=== PATIENT | female | born 1975 | race Caucasian/White ===

== ENCOUNTER 2019-03-15 00:51 | Day surgery (SDC) | payer OTHER, SELFPAY ==
[2019-03-07 13:12] VITALS: BMI 76.5
--- NOTE | 2019-03-13 14:47 | PM.IMHP ---
H&P: HPI History of Present Illness Chief complaint: Ovarian cyst, pelvic pain Narrative: Kenna Felix is a 43 year old female who is admitted for laparoscopy and left ovarian cystectomy. She may have both tubes removed at the same time. She is status post hysterectomy and has had pain and discomfort. She had an ultrasound which showed what appears to be left ovarian cyst. This will be removed with the possibility of removing the entire ovary. Risks and benefits were reviewed including but not exclusive of , aspiration pneumonia, bleeding, transfusion, perforation to bowel bladder, bladder, ureters, or other internal organs with need for laparotomy. She voiced understanding. She had all questions answered. She received the [employer] handout entitled laparoscopy. She asked to proceed Review of Systems Review of Systems: All systems reviewed & are unremarkable except as noted in HPI and below PMFSH Social History Social History Gender identity (if verbalized by the patient): Female Meds Home Medications and Allergies Home Medications Medication Instructions Recorded Confirmed Type L.acid-L.casei-B.bif-B.nickolas-FOS 1 cap PO DAILY 03/07/19 03/07/19 History [Probiotic Blend] cholecalciferol (vitamin D3) 2,000 unit PO DAILY 03/07/19 03/07/19 History [Vitamin D3] cyanocobalamin (vitamin B-12) 1,000 mcg PO DAILY 03/07/19 03/07/19 History [Vitamin B-12] lisinopril 5 mg PO DAILY 03/07/19 03/07/19 History omeprazole 20 mg PO DAILY 03/07/19 03/07/19 History Allergies Allergy/AdvReac Type Severity Reaction Status Date / Time codeine Allergy Unknown HIVES Verified 03/07/19 13:38 Exam Const: General: no acute distress Eyes: General: appearance normal, both eyes and all related structures Neck: Neck: supple and no JVD Thyroid: thyroid normal Resp: Effort & Inspection: normal respiratory effort Auscultation: clear to auscultation bilaterally Cardio: Rate: regular rate Rhythm: regular rhythm GI: Inspection: non-distended GI Palp: Yes Soft to palpation, No Tenderness to palpation present (GI) and No Guarding due to palpation present (GI) Auscultation: normal bowel sounds : Bimanual exam- vagina & uterus: enlarged (absent) Bimanual Exam- Adnexa, other: tender (bilaterally) Skin: General skin exam: no rashes or lesions noted Extrem: General: normal to inspection and no edema Psych: Mental Status: mental status grossly normal Affect: normal affect Assessment and Plan Additional Plan impression: Complex left ovarian cyst Plan: Laparoscopy, left cystectomy, possible bilateral salpingectomy, possible left salpingo-oophorectomy
[2019-03-15] VITALS (10 sets, daily range): BP systolic 124–151; BP diastolic 71–89; PULSE 46–94; RESP 14–18; TEMP 36.2–36.3; O2SAT 97–100
[2019-03-15] MEDS: LACTATED RINGERS 1,000 ML 30 ML IV CONT (06:30)
--- NOTE | 2019-03-15 06:48 | WPDHPUPDATE1 ---
History and Physical Update Update Date/Time: 03/15/19 06:48 History and Physical has been reviewed, including an updated exam of the patient. There are NO changes in the patient's condition. Risks, benefits, and alternatives have been discussed and questions answered. Patient agrees to proceed with procedure.
--- NOTE | 2019-03-15 07:20 | WPDANESEPPF ---
Anes - Initial Pre Proc Eval Procedure: Operation Date: 03/15/19 07:30 Proposed Procedures p Laparoscopy with Unilateral Ovarian Cystectomy, Possible Bilateral Salpingectomy - Alejandro Estrada MD Date/Time: 03/15/19 07:20 Surgeon: Alejandro Estrada MD Pre Op Diagnosis: Ovarian cyst, pelvic pain Patient Data Age: 43 Gender: F Height: 5 ft 9 in Weight: 235 kg Allergies Allergy/AdvReac Type Severity Reaction Status Date / Time codeine Allergy Unknown HIVES Verified 03/07/19 13:38 Home Medications Medication Instructions Recorded Confirmed Type L.acid-L.casei-B.bif-B.nickolas-FOS 1 cap PO DAILY 03/07/19 03/07/19 History [Probiotic Blend] cholecalciferol (vitamin D3) 2,000 unit PO DAILY 03/07/19 03/07/19 History [Vitamin D3] cyanocobalamin (vitamin B-12) 1,000 mcg PO DAILY 03/07/19 03/07/19 History [Vitamin B-12] lisinopril 5 mg PO DAILY 03/07/19 03/07/19 History omeprazole 20 mg PO DAILY 03/07/19 03/07/19 History tramadol 50 mg PO Q4H PRN #20 tablet 03/15/19 Rx Patient hx anesthesia problems: none Family hx anesthesia problems: none [facility] Past Medical History Medical History (Updated 03/15/19 @ 07:20 by Brien Montaño MD) GERD (gastroesophageal reflux disease) Hypertension Social History Social History Gender identity (if verbalized by the patient): Female Anes - Eval Final PreProcedure Day of Procedure 03/15/19 07:20 Patient weight: obese Heart: regular rate and rhythm Lungs: clear to auscultation Airway: Mallampati scale class III Neurological: alert and oriented Last oral intake: >/= 8 hours ASA classification: III Emergent: no Anesthetic plan: proceed Anesthesia type and monitoring: general ETT and standard monitoring Informed Consent: The patient's anesthetic plan and its attendant risks and benefits were discussed with the patient/family/POA. Questions were solicited and answers provided to the satisfaction of the patient/family/POA.
[2019-03-15] MEDS: KETOROLAC 30 MG/ML VIAL (*BKC) IV PUSH (08:07)
--- NOTE | 2019-03-15 08:08 | PM.PROC ---
Procedure Note - Detailed Date of procedure: 03/15/19 Pre-op diagnosis: Ovarian cyst, pelvic pain Surgeon: Alejandro Estrada MD Postop diagnosis: Ovarian right ovarian cyst, pelvic pain, endometriosis Procedure: Laparoscopic destruction of endometriosis, destruction of right ovarian cyst Anesthesia: General endotracheal EBL: 5cc Complications: None Findings: Powder burn endometriosis along the right and left uterus sacral ligaments. A benign appearing right ovarian cyst. Absent uterus. Description of procedure: Patient was prepped and draped in the normal sterile fashion and placed in the dorsal lithotomy position. Under excellent general endotracheal anesthesia weighted speculum placed in posterior fornix vagina. A sponge stick was placed. The cervix was surgically absent. The bladder then drained of clear urine. This weighted speculum was removed. Gloves were changed. An infra umbilical incision made and the Veress needle passed in the abdomen. The abdomen was filled with CO2 gas [id number]. The 5mm trocar was advanced under direct visualization assuring no injury. The patient was placed in Trendelenburg. A suprapubic incision made in the 5mm trocar advanced in the abdomen under direct visualization assuring no injury. The above findings were seen the serosanguineous fluid in the cul-de-sac was irrigated and removed. The areas of endometriosis were then serially cauterized at 35 w per 2nd with monopolar cautery. A right simple ovarian cyst was seen and this was drained of clear fluid. No other abnormalities were seen. The lower site removed. The gas removed from the abdomen. The incisions closed with 4 O Monocryl and glue after removing the trocars. All sponge, needle, instrument counts were correct. There were no immediate complications.
== END 2019-03-15 10:38 | disposition home or self-care (01) ==
PROVIDERS: PCP Nurse Practitioner Adult Health; Visit Provider Obstetrics & Gynecology
PROC: (CPT 49320; principal; 2019-03-15 07:30)
DX: N83.201 Unspecified ovarian cyst, right side (principal); N80.3 Endometriosis of pelvic peritoneum; R10.2 Pelvic and perineal pain; I10 Essential (primary) hypertension; K21.9 Gastro-esophageal reflux disease without esophagitis; E66.9 Obesity, unspecified; Z68.34 Body mass index [BMI] 34.0-34.9, adult
CPT/HCPCS: 58662; A9270; J0330; J1100; J1885; J2250; J2405; J2704; J3010; J7030; J7120

== ENCOUNTER 2019-08-07 08:00 | Outpatient (RCR) | payer OTHER, SELFPAY ==
--- NOTE | 2019-08-07 08:15 | PTOPEVAL ---
Thank you for referring Kenna Felix to [facility]. Please review, sign, date and return this plan of care ELBERT. I agree with and certify that the following plan of care is medically necessary. Referring Physician Date Admitting Provider: Attending Provider: Marilee Bryson, SECURITY DIRECTOR Referring Provider: *PT Outpatient Evaluation Start: 08/07/19 07:04 Freq: Status: Active Protocol: Document 08/07/19 07:05 [facility] (Rec: 08/07/19 07:36 [facility] [id number]) Therapy Assessment Status Assessment Status Assessment Status Evaluation Outpatient Past Medical History Neurological History Hx Neurological Disorders No Significant History Cardiovascular History Hx Hypertension Yes Respiratory History Hx Respiratory Disorders No Significant History Gastrointestinal History Hx Cholecystectomy Yes Hx Gastroesophageal Reflux Disease Yes Genitourinary History Hx Genitourinary Disorders No Significant History Musculoskeletal History Hx Musculoskeletal Disorders No Significant History Hematological History Hx Hematological Disorders No Significant History Endocrine History Hx Endocrine Disorders No Significant History HEENT History Hx HEENT Disorders No Significant History Integumentary History Hx Skin Disorders No Significant History Reproductive History Hx Section Yes Hx Hysterectomy Yes Psychosocial History Hx Psychiatric Disorders No Significant History Pain History Has Past Pain Affected Your Daily Life Yes Anesthesia History Hx Anesthesia Reactions No Significant History Evaluation Information Problem Diagnosis left hip pain Onset 08/01/19 Additional Evaluation Detail LEFS=23 Subjective Information Pt. describes continous pain Query Text:As Reported By Patient/ in the area of the low back. Family She reports that she had no particular incident 2 years ago. She reports that she underwent MRI which revealed OA in the L5-S1. Pt. underwent injection with success, however it wore off and attempted a second injection with no relief. Pt. reports that she cannot sit or stand for long periods without increased pain. She reports pain will wake her at night. Pt. reports that her goal for therapy is to decrease her leg and back
--- NOTE | 2019-10-07 11:28 | PCPTNOTE ---
Pt. has failed to return to the clinic and be discharged from PT. Refer to last daily note for pt. discharge status.
== END 2019-08-21 13:45 | disposition home or self-care (01) ==
LOC: CHSPT 08:00
PROVIDERS: Visit Provider Nurse Practitioner Adult Health
DX: M25.552 Pain in left hip (principal)
CPT/HCPCS: 97012; 97014; 97110; 97140; 97161; G0283

== ENCOUNTER 2019-08-20 11:02 | Outpatient (CLI) | payer OTHER, SELFPAY ==
--- NOTE | ~2019-08-20 | MR_ITS ---
EXAMINATION: MR lumbar spine wo con DATE: 08/20/2019 11:53 INDICATION: Lumbar radiculopathy. TECHNIQUE: Magnetic resonance imaging (MRI) of the lumbar spine was performed without intravenous con trast. Sequences included sagittal T2-weighted FSE, sagittal T2-weighted FS FSE, sagittal T1-weighted FSE, and axial T2-weighted FSE. COMPARISON: Lumbar spine MRI 07/06/2018, radiographs 11/01/2017 FINDINGS: There is a transitional segment at the lumbosacral junction that is designated L5. Bone ali gnment is normal. Vertebral body heights and intervertebral disc heights are normal. The distal spina l cord signal intensity is normal. The conus medullaris is at L1. The following disc levels are speci fically discussed: L1-L2: The disc does not extend beyond the endplate margin. There is severe right and moderate left f acet joint osteoarthritis. There is no neural foraminal stenosis. There is no central canal stenosis. L2-L3: The disc does not extend beyond the endplate margin. There is moderate right and severe left f acet joint osteoarthritis. There is no neural foraminal stenosis. There is no central canal stenosis. L3-L4: The disc is mildly bulging. There is severe bilateral facet joint osteoarthritis. There is mil d bilateral neural foraminal stenosis. There is no central canal stenosis. L4-L5: The disc is mildly bulging. There is severe bilateral facet joint osteoarthritis. There is mil d bilateral neural foraminal stenosis. There is no central canal stenosis. L5-S1: The disc does not extend beyond the endplate margin. There is no facet joint hypertrophy. Ther e is no neural foraminal stenosis. There is no central canal stenosis. IMPRESSION: 1. Mild lumbar spondylosis, stable from 07/06/2018. Reviewed, dictated and finalized at location A.
== END 2019-08-20 11:03 | disposition home or self-care (01) ==
PROVIDERS: PCP Nurse Practitioner Adult Health; Visit Provider Nurse Practitioner Adult Health
DX: M47.26 Other spondylosis with radiculopathy, lumbar region (principal)
CPT/HCPCS: 72148

== ENCOUNTER 2020-05-19 07:54 | Outpatient (CLI) | payer OTHER, SELFPAY ==
--- NOTE | ~2020-05-19 | XR_ITS ---
EXAMINATION: XR barium swallow modified EXAM DATE: 05/19/2020 08:30 INDICATION: Oropharyngeal dysphagia. TECHNIQUE: Modified barium esophagram was performed by myself to administered fluoroscopy, in conjun ction with speech pathologist who administered barium in varying consistencies as per speech patholog ist documentation. This was recorded on tape. Pulsed dose reduction fluoroscopy was used with fluor oscopic time of 0.7 minutes. A total of 1 images obtained for the exam. The DAP for this procedure was 25 Gycm2. FINDINGS: Oral stage: Adequate function. Pharyngeal phase: Adequate function. Laryngeal penetration: None. Aspiration: None. Laryngeal sensitivity: Present. IMPRESSION: Normal modified esophagram exam. Please refer to speech pathologist findings and specifi c feeding recommendations. Reviewed, dictated and finalized at location A. IMPRESSION: Normal modified esophagram exam. Please refer to speech pathologis t findings and specific feeding recommendations.
--- NOTE | 2020-05-19 15:21 | STOPEVAL ---
MODIFIED BARIUM SWALLOW EVALUATION: Thank you for referring Kenna Fitzgerald [facility] to [facility].? Attending Provider: Hardeep Jimenez, Outpatient Past Medical History Neurological History Hx Neurological Disorders No Significant History Cardiovascular History Hx Hypertension Yes Respiratory History Hx Respiratory Disorders No Significant History Gastrointestinal History Hx Cholecystectomy Yes Hx Gastroesophageal Reflux Disease Yes Genitourinary History Hx Genitourinary Disorders No Significant History Musculoskeletal History Hx Musculoskeletal Disorders No Significant History Hematological History Hx Hematological Disorders No Significant History Endocrine History Hx Endocrine Disorders No Significant History HEENT History Hx HEENT Disorders No Significant History Integumentary History Hx Skin Disorders No Significant History Reproductive History Hx Section Yes Hx Hysterectomy Yes Psychosocial History Hx Psychiatric Disorders No Significant History Pain History Has Past Pain Affected Your Daily Life Yes Anesthesia History Hx Anesthesia Reactions No Significant History Prior Level of Function Prior Swallow Level Prior Intake Method Oral Prior Diet Regular (Level 7 Diet) Prior Liquid Consistency Thin (Level 0 Diet) Modified Barium Swallow Evaluation Recent Swallowing History Reports Dysphagia Yes: feeling of thickness in throat History of Dysphagia related to acid reflux History of Pneumonia No Reported Difficult Consistencies Solids Intake Method Prior to Swallow Oral Evaluation Diet Prior to Swallow Evaluation Regular, Level 7 Liquid Consistency Prior to Swallow Thin (0) Evaluation Consistency Solid Consistency Method of Presentation Spoon Oral Preparatory Symptoms None Oral Phase Symptoms None Pharyngeal Phase Symptoms None Severity of Vallecular Residue None - 0% No Residue Severity of Pyriform Sinus Residue None - 0% No Residue 8 Point Laryngeal Penetration-Aspiration Material Does Not Enter Airway Scale Cervical/Esophageal Symptoms None Mixed Consistency Method of Presentation Spoon Oral Preparatory Symptoms None Oral Phase Symptoms None Pharyngeal Phase Symptoms None Severity of Vallecular Residue None - 0% No Residue Severity of Pyriform Sinus Residue None - 0% No Residue 8 Point Laryngeal Penetration-Aspiration Material Does Not Enter Airway Scale Cervical/Esophageal Symptoms None Pureed Consistency Method of Presentation Spoon Oral Preparatory Symptoms None Oral Phase Symptoms None Pharyngeal Phase Symptoms None Severity of Vallecular Residue
== END 2020-05-19 07:55 | disposition home or self-care (01) ==
PROVIDERS: PCP Nurse Practitioner Adult Health; Visit Provider Otolaryngology
DX: R13.12 Dysphagia, oropharyngeal phase (principal)
CPT/HCPCS: 92611

== ENCOUNTER 2021-05-10 18:45 | Emergency (ER) | payer OTHER, SELFPAY ==
--- NOTE | ~2021-05-10 | XR_ITS ---
XR elbow RT 2V DATE: 05/10/2021 19:12 INDICATION: Posterior right elbow pain for one day TECHNIQUE: AP and lateral views COMPARISON: None FINDINGS: No fracture or dislocation or joint effusion, periosteal reaction or bone destruction. IMPRESSION: No significant abnormality Reviewed, dictated and finalized at location A. IMPRESSION: No significant abnormality
[2021-05-10 18:56] VITALS: BP 176/103; PULSE 66; RESP 16; TEMP 36.5; O2SAT 99
[2021-05-10] MEDS: KETOROLAC (*BKC) 60 MG/2 ML VIAL IM (19:02)
--- NOTE | 2021-05-10 19:07 | ED.UPPEXIN ---
HPI - Extremity Injury (Upper) General Chief Complaint: Extremity Injury, Upper Stated Complaint: RT arm pain, tingling, numbness, swelling Time Seen by Provider: 05/10/21 18:49 Source: patient and family Mode of arrival: ambulatory Limitations: no limitations History of Present Illness HPI narrative: this is a 45-year-old female that while playing basketball with her children at home last night heard a pop in her right elbow and subsequent to that has been having pain with discomfort with movement and range of motion. Patient states that she had carpal tunnel surgery in that arm in the past, the patient did take some Aleve with minimal relief. Otherwise no numbness or tingling has good radial pulse on the right. complaint: injury to: right and elbow Onset (ago): day(s) Other Extremity Injury: Right: elbow ( tender with movement and palpation) Severity: moderate Severity scale (1-10): 6 Relieving factors: immobilization Exacerbating factors: movement of extremity Context: sports-related injury Associated symptoms: denies other symptoms Related Data Home Medications Medication Instructions Recorded Confirmed L.acid-L.casei-B.bif-B.nickolas-FOS 1 cap PO DAILY 03/07/19 05/10/21 [Probiotic Blend] cholecalciferol (vitamin D3) 2,000 unit PO DAILY 03/07/19 05/10/21 [Vitamin D3] cyanocobalamin (vitamin B-12) 1,000 mcg PO DAILY 03/07/19 05/10/21 [Vitamin B-12] lisinopril 5 mg PO DAILY 03/07/19 05/10/21 omeprazole 20 mg PO DAILY 03/07/19 05/10/21 celecoxib 200 mg PO DAILY 05/10/21 05/10/21 estradiol 1 mg PO DAILY 05/10/21 05/10/21 Allergies Allergy/AdvReac Type Severity Reaction Status Date / Time codeine Allergy Intermediate Blurry Verified 05/10/21 18:59 Vision Review of Systems Review of Systems: All systems reviewed & are unremarkable except as noted in HPI and below PMFSH Past Medical History Medical History GERD (gastroesophageal reflux disease) Hypertension Social History Social History Gender identity (if verbalized by the patient): Female Exam Const: General: no acute distress and alert Orientation/consciousness: patient oriented x3 HENMT: Head: normal to inspection Eyes: Conjunctivae: conjunctivae normal Pupils: Equal, round and reactive pupils present EOM: EOMs intact bilaterally Neck: Neck: normal visual inspection, no lymphadenopathy and no meningeal signs Lymphatic: no lymphadenopathy noted Chest: Chest palpation & inspection: normal inspection of the chest Resp: Effort & Inspection: normal respiratory effort Cardio: Rate: regular rate Rhythm: regular rhythm GI: GI Palp: Yes Soft to palpation Percussion: Yes normal to percussion Urinary Catheter: Urinary Catheter: patent and draining Back/Spine/Pelvis: Back: no CVA tenderness Skin: General skin exam: normal color Neuro: General: patient oriented x3 and moves all extremities Extrem: General: normal to inspection Psych: Mental Status: mental status grossly normal Affect: normal affect Course Course Emergency Course: Reassessment of patient after she received 60mg IM Toradol pain has improved, and x-ray performed of the right elbow was reviewed with patient and family. Vital Signs Vital signs: Vital Signs Temperature 36.5 C 05/10/21 18:56 Pulse Rate 66 05/10/21 18:56 Respiratory Rate 16 05/10/21 18:56 Blood Pressure 176/103 H 05/10/21 18:56 Pulse Oximetry 99 05/10/21 18:56 Temperature 36.5 C 05/10/21 18:56 Pulse Rate 66 05/10/21 18:56 Respiratory Rate 16 05/10/21 18:56 Blood Pressure 176/103 H 05/10/21 18:56 Pulse Oximetry 99 05/10/21 18:56 Critical Care Time Critical Care Time Critical Care Time: No Discharge Plan Discharge Clinical Impression: Elbow sprain Qualifiers: Encounter type: initial encounter Laterality: right Qualified Code(s): S53.401A - Un
[2021-05-10 19:30] VITALS: BP 164/97; PULSE 71; RESP 18; TEMP 36.3; O2SAT 98
== END 2021-05-10 19:32 | disposition home or self-care (01) ==
PROVIDERS: Emergency Provider Emergency Medicine; PCP Nurse Practitioner Adult Health
DX: S53.401A Unspecified sprain of right elbow, initial encounter (principal)
CPT/HCPCS: 73070; 96372; 99283; J1885

== ENCOUNTER 2021-05-21 10:53 | Outpatient (RCR) | payer OTHER, SELFPAY ==
--- NOTE | 2021-05-21 13:58 | PTOPEVAL ---
Thank you for referring Kenna Felix to [facility].? The patient is scheduled to be seen for therapy? ____x/week for ___ weeks. Please review, sign, date and return this plan of care ELBERT. I agree with and certify that the following plan of care is medically necessary. Referring Physician Date Admitting Provider: Attending Provider: Glen Winters Referring Provider: PENG Outpatient Evaluation Start: 05/21/21 11:05 Freq: Status: Active Protocol: Document 05/21/21 11:[address] [facility] (Rec: 05/21/21 11:[address] [facility] [id number]) Therapy Assessment Status Assessment Status Assessment Status Evaluation Outpatient Past Medical History Neurological History Hx Neurological Disorders No Significant History Cardiovascular History Hx Hypertension Yes Respiratory History Hx Respiratory Disorders No Significant History Gastrointestinal History Hx Cholecystectomy Yes Hx Gastroesophageal Reflux Disease Yes Genitourinary History Hx Genitourinary Disorders No Significant History Musculoskeletal History Hx Musculoskeletal Disorders No Significant History Hematological History Hx Hematological Disorders No Significant History Endocrine History Hx Endocrine Disorders No Significant History HEENT History Hx HEENT Disorders No Significant History Integumentary History Hx Skin Disorders No Significant History Psychosocial History Hx Psychiatric Disorders No Significant History Pain History Has Past Pain Affected Your Daily Life Yes Anesthesia History Hx Anesthesia Reactions No Significant History Evaluation Information Problem Diagnosis R distal biceps tedonitis, lat /med epicondylitis, s/p ulnar nerve transpo Onset 05/09/21 Additional Evaluation Detail quick dash = 75% functionally declined Subjective Information patient had surgery on the R Query Text:As Reported By Patient/ elbow back in 2017 (ulnar Family nerve transposition and tennis elbow surgery). patient reports she was shooting hoops on 05/09/21 and felt a pop in the R elbow taking a shot. she felt immediate pain, tingling, and swelling from the forearm up to the shoulder . she continues to ahve brusing of the R elbow. she reports she has increased pain with lifting, extending the elbow, and typing at work. she
--- NOTE | 2021-06-30 08:05 | PTOPEVAL ---
Thank you for referring Kenna Felix to [facility].? The patient is scheduled to be seen for therapy? ____x/week for ___ weeks. Please review, sign, date and return this plan of care ELBERT. I agree with and certify that the following plan of care is medically necessary. Referring Physician Date Admitting Provider: Attending Provider: Glen Witners Referring Provider: *PT Outpatient Evaluation Start: 05/21/21 11:05 Freq: Status: Active Protocol: Document 06/29/21 16:00 [facility] (Rec: 06/30/21 08:04 [facility] [id number]) Therapy Assessment Status Assessment Status Assessment Status Discharge Outpatient Past Medical History Neurological History Hx Neurological Disorders No Significant History Cardiovascular History Hx Hypertension Yes Respiratory History Hx Respiratory Disorders No Significant History Gastrointestinal History Hx Cholecystectomy Yes Hx Gastroesophageal Reflux Disease Yes Genitourinary History Hx Genitourinary Disorders No Significant History Musculoskeletal History Hx Musculoskeletal Disorders No Significant History Hematological History Hx Hematological Disorders No Significant History Endocrine History Hx Endocrine Disorders No Significant History HEENT History Hx HEENT Disorders No Significant History Integumentary History Hx Skin Disorders No Significant History Psychosocial History Hx Psychiatric Disorders No Significant History Pain History Has Past Pain Affected Your Daily Life Yes Anesthesia History Hx Anesthesia Reactions No Significant History Evaluation Information Problem Diagnosis R distal biceps tedonitis, lat /med epicondylitis, s/p ulnar nerve transpo Onset 05/09/21 Additional Evaluation Detail quick dash = 56% functionally declined Subjective Information patient reports she continues Query Text:As Reported By Patient/ to have pain in the R lateral Family elbow. she reports this interferes with her work and daily activities. she reports she has not noticed much improvement since her intial evaluation with skilled PT. she reports she follows up with her MD within the next week. Pain Assessment Timing of Pain Assessment Timing of Pain Assessment Assessment Pain Scale Pain Scale Used Numeric (1 - 10) Self Report Pain Assessment Right Elbow(s) Reported Pain Level 4 Greatest Pain Intensity 9 Pain Score Pain
--- NOTE | 2021-07-21 11:36 | PTOPEVAL ---
Thank you for referring Kenna Felix to [facility].? The patient is scheduled to be seen for therapy? ____x/week for ___ weeks. Please review, sign, date and return this plan of care ELBERT. I agree with and certify that the following plan of care is medically necessary. Referring Physician Date Admitting Provider: Attending Provider: Glen Winters Referring Provider: *PT Outpatient Evaluation Start: 05/21/21 11:05 Freq: Status: Active Protocol: Document 07/21/21 09:00 [facility] (Rec: 07/21/21 10:25 [facility] [id number]) Therapy Assessment Status Assessment Status Assessment Status Re-evaluation Outpatient Past Medical History Neurological History Hx Neurological Disorders No Significant History Cardiovascular History Hx Hypertension Yes Respiratory History Hx Respiratory Disorders No Significant History Gastrointestinal History Hx Cholecystectomy Yes Hx Gastroesophageal Reflux Disease Yes Genitourinary History Hx Genitourinary Disorders No Significant History Musculoskeletal History Hx Musculoskeletal Disorders No Significant History Hematological History Hx Hematological Disorders No Significant History Endocrine History Hx Endocrine Disorders No Significant History HEENT History Hx HEENT Disorders No Significant History Integumentary History Hx Skin Disorders No Significant History Psychosocial History Hx Psychiatric Disorders No Significant History Pain History Has Past Pain Affected Your Daily Life Yes Anesthesia History Hx Anesthesia Reactions No Significant History Evaluation Information Problem Diagnosis R Lateral Epicondylitis; R Medial Epicondylitis Onset 07/01/21 Subjective Information Pt reports that she had a Query Text:As Reported By Patient/ cortisone injection 3 weeks Family ago on the common extensor tendon of her R elbow and had six weeks of therapy prior to this. Her injury was at the end of april. When shooting a basketball, she felt a pop in her elbow and had intense pain . Later, she had imaging showing a tear in the bicep and a tear in ligaments of the elbow. She states that her pain is the worst when moving her wrist up, down, or side to side. Even at rest, she states that she has a 2/10 pain in the elbow on the
--- NOTE | 2021-10-11 16:47 | PCPTNOTE ---
Mrs. Felix attended her re-evaluation on 07/21/21 and failed to return to the clinic. She will be discharged from our care at this time. Refer to last re-evaluation note for discharge status.
== END 2021-07-21 23:59 | disposition home or self-care (01) ==
LOC: CHSPT 10:53
DX: M77.8 Other enthesopathies, not elsewhere classified (principal); M77.01 Medial epicondylitis, right elbow; M77.11 Lateral epicondylitis, right elbow
CPT/HCPCS: 97014; 97035; 97110; 97140; 97161; 97164; G0283

== ENCOUNTER 2021-11-12 02:00 | Day surgery (SDC) | payer OTHER, SELFPAY ==
[2021-11-02 11:06] VITALS: BMI 36.3
--- NOTE | 2021-11-11 15:06 | P.HP_ITS ---
History of Present Illness History of Present Illness Consent: Risks, benefits, and alternatives have been discussed and questions answered. Patient agrees to proceed with procedure. Chief complaint: change in bowel habits Narrative: Kenna Felix is a 46 year old female with a change in bowel habits. She has been passing mucoid material per rectum. She has history of having a polyp removed in [place] about five- 6 years ago. she also has a strong family history of cancer including colon cancer in a cousin who was in the early 50s. Review of Systems Review of Systems: All systems reviewed & are unremarkable except as noted in HPI and below PMFSH Past Medical History Medical History Arthritis GERD (gastroesophageal reflux disease) History of gastroesophageal reflux (GERD) Hypertension Surgical History Surgical History H/O elbow surgery Bilateral ulnar nerve transposition. Right lateral epicondylar debridement. 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 Gender identity (if verbalized by the patient): Female Spiritual care concerns: No Meds Home Medications and Allergies Home Medications Medication Instructions Recorded Confirmed Type cholecalciferol (vitamin D3) 50 2,000 unit PO DAILY 03/07/19 11/12/21 History mcg (2,000 unit) tablet (Vitamin D3) cyanocobalamin (vitamin B-12) 1,000 mcg PO DAILY 03/07/19 11/12/21 History 1,000 mcg tablet (Vitamin B-12) lisinopril 10 mg tablet 5 mg PO DAILY 03/07/19 11/12/21 History omeprazole 20 mg capsule,delayed 20 mg PO DAILY 03/07/19 11/12/21 History release estradiol 1 mg tablet 1 mg PO DAILY 05/10/21 11/12/21 History Allergies Allergy/AdvReac Type Severity Reaction Status Date / Time codeine Allergy Intermediate Blurry Verified 11/12/21 06:49 Vision Exam Const: General: alert Orientation/consciousness: patient oriented x3 Resp: Auscultation: clear to auscultation bilaterally Cardio: Rhythm: regular rhythm GI: GI Palp: Yes Soft to palpation and No Tenderness to palpation present (GI) Neuro: General: patient oriented x3 Assessment and Plan Assessment and plan (1) Change in bowel habits: Code(s): R19.4 - Change in bowel habit Status: Acute Assessment and Plan: Colonoscopy with possible biopsy or polypectomy or cautery or injection of substances.
[2021-11-12 06:51] VITALS: BP 142/81; PULSE 59; RESP 18; TEMP 36; O2SAT 99
[2021-11-12] MEDS: LACTATED RINGERS 1,000 ML 150 ML IV CONT (07:01)
--- NOTE | 2021-11-12 07:51 | WPDANESEPPF ---
Anes - Initial Pre Proc Eval Procedure: Operation Date: 11/12/21 08:00 Proposed Procedures p Colonoscopy - Robert Evangelista MD Date/Time: 11/12/21 07:51 Surgeon: Robert Evangelista MD Pre Op Diagnosis: change in bowel habits Patient Data Age: 46 Gender: F Height: 1.75 m Weight: 110.7 kg Last Vital Signs Temp 96.8 F L 11/12/21 06:51 Pulse 59 L 11/12/21 06:51 Resp 18 11/12/21 06:51 BP 142/81 H 11/12/21 06:51 Pulse Ox 99 11/12/21 06:51 O2 Del Method Room Air 11/12/21 06:51 Allergies Allergy/AdvReac Type Severity Reaction Status Date / Time codeine Allergy Intermediate Blurry Verified 11/12/21 06:49 Vision Home Medications Medication Instructions Recorded Confirmed Type cholecalciferol (vitamin D3) 50 2,000 unit PO DAILY 03/07/19 11/12/21 History mcg (2,000 unit) tablet (Vitamin D3) cyanocobalamin (vitamin B-12) 1,000 mcg PO DAILY 03/07/19 11/12/21 History 1,000 mcg tablet (Vitamin B-12) lisinopril 10 mg tablet 5 mg PO DAILY 03/07/19 11/12/21 History omeprazole 20 mg capsule,delayed 20 mg PO DAILY 03/07/19 11/12/21 History release estradiol 1 mg tablet 1 mg PO DAILY 05/10/21 11/12/21 History Patient hx anesthesia problems: none Family hx anesthesia problems: none Results Review: All pre-operative results and documents have been reviewed as part of the pre-operative evaluation. [facility] Past Medical History Medical History Arthritis GERD (gastroesophageal reflux disease) History of gastroesophageal reflux (GERD) Hypertension Surgical History Surgical History H/O elbow surgery Bilateral ulnar nerve transposition. Right lateral epicondylar debridement. 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 Informed Consent: The patient's anesthetic plan and its attendant risks and benefits were discussed with the patient/family/POA. Questions were solicited and answers provided to the satisfaction of the patient/family/POA.
[2021-11-12 08:15] VITALS: BP 146/96; PULSE 105; RESP 23; O2SAT 97
[2021-11-12 08:25] VITALS: BP 124/69; PULSE 71; RESP 21; O2SAT 97
[2021-11-12 08:35] VITALS: BP 127/83; PULSE 58; RESP 17; O2SAT 97
== END 2021-11-12 08:47 | disposition home or self-care (01) ==
PROVIDERS: PCP Nurse Practitioner Adult Health; Visit Provider Internal Medicine Gastroenterology
PROC: 0DJD8ZZ Inspection of Lower Intestinal Tract, Via Natural or Artificial Opening Endoscopic (ICD-10-PCS; CPT 45378; principal; 2021-11-12 08:00)
DX: Z12.11 Encounter for screening for malignant neoplasm of colon (principal); Z80.0 Family history of malignant neoplasm of digestive organs; K59.00 Constipation, unspecified; K57.30 Diverticulosis of large intestine without perforation or abscess without bleeding; R19.5 Other fecal abnormalities; M19.90 Unspecified osteoarthritis, unspecified site; K21.9 Gastro-esophageal reflux disease without esophagitis; I10 Essential (primary) hypertension; E66.9 Obesity, unspecified; Z68.36 Body mass index [BMI] 36.0-36.9, adult
CPT/HCPCS: 45378; J2704; J7120

== ENCOUNTER 2022-05-18 09:25 | Outpatient (CLI) | payer OTHER, SELFPAY ==
--- NOTE | 2022-05-18 10:00 | NEURO_ITS ---
Impression: # Complains of numbness and pain of right arm. # Right ulnar neuropathy across the elbow. # No Carpal Tunnel Syndrome. # Normal needle/EMG exam with no neurogenic changes. Motor Nerve Conduction Upper Extremities Median Nerve Conduction Velocity (m/sec) Terminal Latency (msec) Response Voltage(mV) Elbow-Wrist Wrist Elbow Wrist Right 58 2.7 3 6 Left Ulnar Nerve Conduction Velocity (m/sec) Terminal Latency (msec) Response Voltage(mV) Above Elbow Below Elbow Wrist Above Elbow Below Elbow Wrist Right 50 58 2.1 4 6 8 Left F-Wave Latency Median (ms) Ulnar (ms) Right 27.8 28.1 Left Sensory Nerve Conduction Upper Extremities Median Nerve Stimulation Terminal Latency (msec) Wrist/Digit Response Voltage (uV) Wrist Right 2.5/2.5 61/71 Left Ulnar Nerve Stimulation Terminal Latency (msec) Wrist/Digit Response Voltage (uV) Wrist Right 2.2 34 Left Radial Nerve Terminal Latency (msec) Response Voltage(mV) Right 1.8 28 Left Left Right Muscles Examined Fibrillation Fasciculation Scarcity Voltage Duration Left Right Left Right Left Right Left Right Left Right Deltoid Biceps X Brachioradialis Triceps X Pronator Teres X Ext Indicis X Ext Digitorum X Abd Poll Brev X 1st Dorsal Interosseus X Abd Dig Min MTDD
== END 2022-05-18 09:26 | disposition home or self-care (01) ==
LOC: ANHNEURO 09:29
PROVIDERS: PCP Physician Assistant
DX: R20.0 Anesthesia of skin (principal); R20.2 Paresthesia of skin; G56.21 Lesion of ulnar nerve, right upper limb
CPT/HCPCS: 95886; 95909

== ENCOUNTER 2023-01-17 14:26 | Outpatient (CLI) | payer OTHER, SELFPAY ==
[2023-01-17 15:10] LABS: Influenza A QL RT-PCR Negative (Negative); Influenza B QL RT-PCR Negative (Negative); SARS-CoV-2 RNA PCR Positive (Negative)
[2023-01-17 15:12] LABS: RSV RNA, RT-PCR Negative (Negative)
== END 2023-01-17 14:27 | disposition home or self-care (01) ==
LOC: CHSLAB 14:28
PROVIDERS: PCP Physician Assistant; Visit Provider Physician Assistant
DX: U07.1 COVID-19 (principal); R68.89 Other general symptoms and signs
CPT/HCPCS: 87637

== ENCOUNTER 2023-08-05 08:54 | Emergency (ER) | payer BC, SELFPAY ==
--- NOTE | 2023-08-05 09:00 | ED.EYEPROB ---
HPI - Eye Problem General Chief complaint: Eye Problems Stated complaint: Blood Clot Right Eye/High Blood Pressure Time Seen by Provider: 08/05/23 09:02 Source: patient Mode of arrival: ambulatory Limitations: no limitations History of Present Illness HPI Narrative: Kenna is a 47-year-old female patient presenting to the clinic today with complaints of a possible blood clot in the right eye and concerns for high blood pressure. She reports she has been taking her blood pressure at home and it has been higher than normal for her She has history of hypertension and take 10 mg lisinopril daily. Blood pressure was 158/93 in the clinic today. States she does have a right-sided headache rating it a 4/10. Headache just started this morning. Has not taken any Tylenol or Motrin for pain. Denies any dizziness, visual changes, chest pain, or shortness of breath. States the pain on the right side of her head is mildly throbbing. No history of migraine headaches. States she fell as though the headache was not bad enough to take Tylenol or Motrin at this time. Denies any known injury to the eye. States she that she woke up with bleeding in the sclera 2-3 nights ago. Denies any URI symptoms. Is having a nonproductive cough at the time of visit. Related Data Home Medications Medication Instructions Recorded Confirmed cholecalciferol (vitamin D3) 50 2,000 unit PO DAILY 03/07/19 08/26/22 mcg (2,000 unit) tablet (Vitamin D3) cyanocobalamin (vitamin B-12) 1,000 mcg PO DAILY 03/07/19 08/26/22 1,000 mcg tablet (Vitamin B-12) esterified 1 tablet PO DAILY 04/05/22 08/26/22 estrogens-methyltestosterone 0.625 mg-1.25 mg tablet Allergies Allergy/AdvReac Type Severity Reaction Status Date / Time codeine Allergy Intermediate Blurry Verified 08/26/22 07:45 Vision Review of Systems Review of Systems: Pertinent positives per HPI. Patient denies any fever, chills, rash, visual changes, dizziness, cough, runny nose, sore throat, shortness of breath, chest pain, palpitations, nausea, vomiting, diarrhea, constipation, abdominal pain, or any urinary issues. PMFSH Past Medical History Medical History Arthritis GERD (gastroesophageal reflux disease) History of gastroesophageal reflux (GERD) Hypertension Surgical History Surgical History H/O elbow surgery Bilateral ulnar nerve transposition. Right lateral epicondylar debridement. H/O: H/O: hysterectomy History of Darvin fundoplication Family History Family History Other Alcoholism Asthma Breast cancer Cerebrovascular accident Depression Diabetes mellitus Heart disease Hypertension Social History Social History Smoking status: Never smoker Alcohol intake: current Drinks per week: 6 Substance use: never Substance use type: does not use Lack of Transportation: No Lack of Food: Never True Current Housing: I Have Housing Concerned About Future Housing: No Difficulty Paying Gas/Electric Bills: No Difficulty Paying for Meds: No Currently Unemployed: No Education: High School Diploma/GED Difficulty w/ Childcare or Family Care: No Living arrangements: with family Occupation/Education: occupation 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 There is no relevant family history pertinent to the patient complaint. Exam Narrative: General: Well-developed, well nourished, in no apparent distress Head: Normocephalic, atraumatic Eyes: Pupils equally round and
[2023-08-05 09:02] VITALS: BP 158/93; PULSE 59; RESP 16; TEMP 36.4; O2SAT 100
[2023-08-05 09:05] VITALS: BP 158/93; PULSE 59; RESP 16; TEMP 36.4; O2SAT 100
== END 2023-08-05 09:22 | disposition home or self-care (01) ==
PROVIDERS: Emergency Provider Nurse Practitioner Family; PCP Physician Assistant
DX: H11.31 Conjunctival hemorrhage, right eye (principal); G44.1 Vascular headache, not elsewhere classified; I10 Essential (primary) hypertension; M19.90 Unspecified osteoarthritis, unspecified site; K21.9 Gastro-esophageal reflux disease without esophagitis
CPT/HCPCS: 99211; G0463

== ENCOUNTER 2024-04-22 18:33 | Outpatient (CLI) | payer BC, SELFPAY ==
--- NOTE | ~2024-04-22 | XR_ITS ---
EXAMINATION: XR shoulder RT min 2V DATE: 04/22/2024 19:22 INDICATION: Right shoulder pain. TECHNIQUE: 4 views of right shoulder were obtained. COMPARISON: None. FINDINGS: Alignment is normal. No fracture. There is mild osteoarthritis of glenohumeral joint and ac romioclavicular joint. There is calcific tendinitis of the rotator cuff. IMPRESSION: 1. Mild polyarticular osteoarthritis. 2. Calcific tendinitis of the rotator cuff. Reviewed, dictated and finalized at location B.
--- OUTSIDE RECORDS SUMMARY | 2024-04-22 19:31 | XMS_ITS | Referral Summary ---
Author Organization [facility] Address [address] [place] [address] Care Team Providers Care Spinner Iron Name Role Phone Selwyn Ang DPT Unavailable [phone] Kingsley Noe [employer] Primary Care Provider Allergies Active Allergy Reactions Criticality Noted Date Comments Bee Venom Protein (Honey Bee) Swelling Medium Codeine Swelling,Other (See comments),Dizziness Medium 02/12/2013 Impaired vision Venom-Wasp Anaphylaxis High 11/14/2019 Medications Saccharomyces boulardii (FLORASTOR) 250 mg capsuleIndicati ons:supplement Take 1 capsule (250 mg total) by mouth every morning Active lisinopril (PRINIVIL,ZESTR IL) 10 mg tabletIndicatio ns:hypertension Take 1 tablet (10 mg total) by mouth every morning 04/26/2018 Active fexofenadine HCl (KATIE ALLERGY ORAL)Indication s:allergies Take 1 tablet by mouth every morning Active omeprazole (PriLOSEC) 20 mg capsuleIndicati ons:acid reflux Take 2 capsules (40 mg total) by mouth every morning 2 tablets Active cyanocobalamin (Vitamin B-12) 100 mcg tabletIndicatio ns:supplement Take 1 tablet (100 mcg total) by mouth every morning Active cholecalciferol (VITAMIN D-3) 400 unit capsuleIndicati ons:supplement Take 1 tablet/capsul e (400 Units total) by mouth every morning Active predniSONE (DELTASONE) 5 mg tabletIndicatio ns:arthritis flareups Take 1 tablet (5 mg) by mouth as needed 05/14/2021 Active estrogens-methy lTESTOSTERone (EEMT,COVARYX) 0.625-1.25 mg per tabletIndicatio ns:Vasomotor Symptoms associated with Menopause Take 1 tablet by mouth every morning 03/17/2022 Active docusate sodium (COLACE) 100 mg capsuleIndicati ons:constipatio n Take 1 capsule (100 mg total) by mouth 2 (two) times a day for 14 days 28 capsule 06/16/2022 Active traMADoL (ULTRAM) 50 mg tablet Take 1 tablet (50 mg total) by mouth every 6 (six) hours as needed for pain 41 tablet 06/16/[address] (PROTONIX) 40 mg EC tablet Take 1 tablet (40 mg total) by mouth every morning 11/28/2022 Active Active Problems Problem Noted Date Diagnosed Date Lateral epicondylitis of right elbow 05/24/2022 Overview (05/24/2022): Added automatically from request for surgery [id number] Allergic reaction to venom 05/20/2021 Ankylosing spondylitis 05/12/2020 Allergic reaction to hymenoptera venom 0 Anxiety 11/14/2019 Depressive disorder 11/14/2019 Eczema 11/14/2019 Herpesvirus infection 11/14/2019 Infestation by Sarcoptes scabiei arthur hominis 02/2019 Irritable bowel syndrome 11/14/2019 Low back pain 11/14/2019 Low serum vitamin B12 11/14/2019 Stress 11/14/2019 Degeneration of lumbar intervertebral disc 10/29 Lumbar radiculopathy 10/30/2019 History of endometriosis 04/02/2019 Vitamin D deficiency 08/29/2018 BRCA1 gene mutation positive 08/28/2018 At high risk for breast cancer 09/25/2017 Obesity with body mass index 30 or greater 02/03 Gastroesophageal reflux disease 07/15/2016 Genetic susceptibility to malignant neoplasm of breast 06/19/2013 Breast disorder 01/22/2013 Immunizations Immunization Administration Dates Next Due Influenza, Quadrivalent, [place] Culture-based MDCK, Antibiotic Free, Intramuscular 11/30/2018 Influenza, Quadrivalent, Split, Intramuscular Td, Not Adsorbed 09/24/2004 Tdap 02/13/2014 Social History Tobacco Use Types Packs/Day Years Used Date Smoking Tobacco: Never Passive Smoke Exposure: Current Smokeless Tobacco: Never Tobacco Cessation:Counseling Given: Not Answered Alcohol Use Standard Drinks/Week Comments Yes 0 (1 standard drink = 0.6 oz pur e alcohol) AUDIT-C Answer Date Recorded Q1: How often do you have a drink containing alc ohol? 2-3 times a week 05/26/2022 Q2: How many drinks containi ng alcohol do you have on a typical day when you are drinking? 3 or 4 05/26/2022 Q3: How often do you have si x or more drinks on one occasion? Monthly 05/26/2022 Personal Safety Answer Date Recorded Have you ever been in or are you currently in a harmful physical or emotional relationship or is someone making you feel afraid or unsafe? 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 Gender Identity Not on file Sexual Orientation Not on file Last Filed Vital Signs Vital Sign Reading Time Taken Comments Blood Pressure 180/92 06/16/2022 5:10 PM CDT Pulse 69 06/16/2022 5:15 PM CDT Temperature 36.1 C (97 F) 06/16/2022 5:16 PM CDT Respiratory Rate 17 06/16/2022 5:15 PM CDT Oxygen Saturation 94% 06/16/2022 5:15 PM CDT Inhaled Oxygen Concentration - - Weight 113.8 kg (250 lb 14.1 oz) 12/12/2022 8:45 AM CDT Height 174 cm (5' 8.5 ) 12/12/2022 8:45 AM CDT Body Mass Index 37.59 12/12/2022 8:45 AM CDT Plan of Treatment Not on file Medical Devices Implanted Type Area Welt Trimming Machine Operator Device Identifier Shelf Expiration Date Model / Serial / Lot [employer] Suturetak Fiberwire Arthrex 3mm 12.7mm Knotless Cruciate Ligament [id number] - [id number] Implanted:Qty: 1 on 06/16/2022 by Glen Winters MD at [facility] Right: Elbow [employer] 03/15/2024 [id number] / / [id number] Procedures Procedure Name Priority Date/Time Associated Diagnosis Comments SCREENING MAMMOGRAM BILATERAL W CHASE Schedule Routine, Read Routine (OP Routine) 12/15/2023 9:51 AM CDT Family history of breast cancer from Last 3 Months or Most Recently Relevant to Health Maintenance Results * Screening Mammogram Bilateral W Chase (12/15/2023 9:51 AM CDT) Anatomical Region Laterality Modality Breast Bilateral Mammography Narrative 12/18/2023 3:09 PM 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 Views obtained: . Computer Aided Detection was performed. Mammogram Findings: The present examination has been compared to prior imaging studies performed at [facility] on 08/05/2014, 08/07/2015, 09/02/2016, 09/26/2017, 10/23/2018, 11/21/2019, 12/02/2020, 12/08/2021 and 12/12/2022. There are scattered areas of fibroglandular density. There is no suspicious abnormality in either breast. There are no significant changes from the prior study. Impression: There is no mammographic evidence of malignancy. Annual screening mammography is recommended. OVERALL FINAL ASSESSMENT: BI-RADS CATEGORY 1: Negative. Procedure Note Pauline Faustin MD - 12/18/2023 Mammogram Technique: Bilateral Digital Breast Tomosynthesis, Bilateral C-view 2D Screening mammogram. Views obtained: . Computer Aided Detection was performed. Mammogram Findings: The present examination has been compared to prior imaging studies performed at [facility] on 08/05/2014, 08/07/2015,09/02/2016, 09/26/2017, 10/23/2018, 11/21/2019, 12/02/2020, 12/08/2021 and12/12/2022. There are scattered areas of fibroglandular density. There is no suspicious abnormality in either breast. There are no significant changes from the prior study. Impression: There is no mammographic evidence of malignancy. Annual screening mammography is recommended. OVERALL FINAL ASSESSMENT: BI-RADS CATEGORY 1: Negative. Christel Montana NP IMG MAMMO PROCEDURES Fi nal Result from Last 3 Months or Most Recently Relevant to Health Maintenance Insurance [facility] OPEN ACCESS [employer] [place] [employer] [place] Care Teams Spinner Iron Relationship Specialty Start Date End Date Kingsley Noe NP [address] [place] [address] PCP - General Nurse Practitioner 12/15/23 Selwyn Ang DPT Physical Therapist Physical Therapy 01/03/20
--- OUTSIDE RECORDS SUMMARY | 2024-04-22 19:31 | XMS_ITS | Clinical Summary ---
Author Organization [facility] Address [address] [address] Care Team Providers Care Integration Solution Architect Name Role Phone Unavailable Primary Care Provider Unavailabl e Source Comments [facility],non-owned Affiliates and Associated Physician Practices is amultiple site organization consisting of ambulatory clinics and hospital sitesin [place], [place], [place] and [place]. This disclosure is being madepursuant to the Care Everywhere program and may not contain all information available regarding this patient. Last updated 17.[facility] Social History Tobacco Use Types Packs/Day Years Used Date Smoking Tobacco: Never Assessed Sex and Gender Information Value Date Recorded Sex Assigned at Not on file Gender Identity Not on file Sexual Orientation Not on file Plan of Treatment Health Maintenance Due Date Last Done Comments COLOGUARD (AGES 45-75) - COL ON CA SCREENING 1973 COLON MONITORING 1973 COLONOSCOPY - COLON CA SCREENING 1973 CT COLONOGRAPHY - COLON CA SCREENING 1973 Colorectal Cancer Screening 1973 FIT - COLON CA SCREENING 1973 FLEX SIG - COLON CA SCREENING 1973 LIPID TESTING 1973 MAMMOGRAM 1973 PAP SMEAR 1973 HIV SCREENING 1988 HEPATITIS C SCREENING 11/01/1991 DTAP/TDAP/TD VACCINES (1 - Tdap) 1992 HEPATITIS B VACCINE (1 of 3 - 19+ 3-dose series) 1992 COVID-19 VACCINE (1 - 2023-2 5 season) 2023 INFLUENZA VACCINE (#1) 2023 12/04/2018 PNEUMOCOCCAL VACCINE 50+ (1 of 1 - PCV) 11/06/2023 ZOSTER VACCINE (1 of 2) 11/06/2023 DEPRESSION SCREENING 02/14/2024 HIB VACCINE Aged Out No longer eligi ble based on patient's age to complete this topic HPV VACCINE Aged Out No longer eligi ble based on patient's age to complete this topic MENINGOCOCCAL (Group B) VACCINE Aged Out No longer eligible based on patient's age to complete this topic MENINGOCOCCAL VACCINE Aged Out No nickolas danyel eligible based on patient's age to complete this topic PNEUMOCOCCAL VACCINE Aged Out No long er eligible based on patient's age to complete this topic
--- OUTSIDE RECORDS SUMMARY | 2024-04-22 19:31 | XMS_ITS | Referral Summary ---
Author Organization [facility] Address [address] [place] [address] Care Team Providers Care Insurance Claims Assistant Name Role Phone Unavailable Primary Care Provider Unavailabl e Source Comments [facility],non-owned Affiliates and Associated Physician Practices is amultiple site organization consisting of ambulatory clinics and hospital sitesin [place], [place], [place] and [place]. This disclosure is being madepursuant to the Care Everywhere program and may not contain all information available regarding this patient. Last updated 17.[facility] Social History Tobacco Use Types Packs/Day Years Used Date Smoking Tobacco: Never Assessed Sex and Gender Information Value Date Recorded Sex Assigned at Not on file Gender Identity Not on file Sexual Orientation Not on file Plan of Treatment Not on file
--- OUTSIDE RECORDS SUMMARY | 2024-04-22 19:31 | XMS_ITS | Clinical Summary ---
Author Organization [facility] Address [address] [place] [address] Care Team Providers Care Ediscovery Project Manager Name Role Phone Selwyn Ang DPT Unavailable [phone] Kingsley Noe MEDIA ACCOUNT EXECUTIVE Primary Care Provider [phone] Allergies Active Allergy Reactions Criticality Noted Date [...] (05/24/2022): Added automatically from request for surgery [id number] Allergic reaction to venom 05/20/2021 Ankylosing spondylitis [...] Intramuscular Td, Not Adsorbed 09/24/2004 Tdap 02/13/2014 Surgical History Surgery Date Site/Laterality Comments CYST REMOVAL 02/13/2019 - 03/15/2019 ovary SECTION 2007 and 2009 HYSTERECTOMY 02/14/2012 - 02/12/2013 ULNAR NERVE REPAIR 07/14/2016 - 08/12/2016 Left COLONOSCOPY 10/14/2021 - 11/12/2021 ULNAR NERVE REPAIR 01/13/2017 - 02/12/2017 Right JAIRO FUNDOPLICATION 2004 and 2016 CYST REMOVAL 02/13/1977 - 02/12/1978 Right neck TUBAL LIGATION 02/13/2011 - 02/13/2012 Medical History Medical History Date Comments Anxiety Arthritis Gastric reflux fair control Hypertension Migraines Obesity Peptic ulceration Family History Medical History Relation Name Comments Arthritis Father Heart disease Father Hypertension Father Skin cancer Father Family history of skin cancer - (Added by TW Conv) Arthritis Mother Clotting disorder Mother Diabetes Mother Family history of diabetes mellitus - (Added by TW Conv) Heart disease Mother Family history of cardiac disorder - (Added by TW Conv) Hypertension Mother Family history of hypertension - (Added by TW Conv) Kidney disease Mother Stroke Mother Anesthesia problems Neg Hx Relation Name Status Comments Father Mother Social History Tobacco Use Types Packs/Day Years [...] on file Legal Sex Female 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 Gender Identity Not on file Sexual Orientation Not on file Obstetrics History Last Filed Vital Signs Vital Sign Reading [...] 12/12/2022 8:45 AM CDT Plan of Treatment Health Maintenance Due Date Last Done Comments Colon Cancer Screening-Colonoscopy 1973 Depression Screening 1973 Hepatitis C Screening 1973 Hepatitis B Screening 11/06/1991 Regular Well Visit/Exam 18-64 11/06/1991 Influenza Vaccine (#1) 2023 12/04/2018, 2018 Zoster Vaccine (1 of 2) 11/06/2023 DTaP/Tdap/Td Vaccine (2 - Td or Tdap) 02/14/2024 02/13/2014, 09/24/2004 Breast Cancer Screening-Mammogram 12/14/2024 12/15/2023, 12/12/2022, 12/08/2021, Additional history exists Pneumococcal vaccine <65 Aged Out No longer eligible based on patient's age to complete this topic Medical Devices Implanted Type Area Barber Shop Operator Device Identifier Shelf Expiration Date Model / Serial / Lot [employer] Suturetak Fiberwire Arthrex 3mm 12.7mm Knotless Cruciate Ligament [id number] - [id number] Implanted:Qty: 1 on 06/16/2022 by Glen Winters MD at [facility] Right: Elbow [employer] 03/15/2024 [id number] / / [id number] Procedures Procedure Name Priority Date/Time Associated Diagnosis Comments SCREENING MAMMOGRAM BILATERAL W CHASE Schedule Routine, Read Routine (OP Routine) 12/15/2023 9:51 AM CDT Family history of breast cancer from Last 3 Months or Most Recently Relevant to Health Maintenance Results * Screening Mammogram Bilateral W Chase (12/15/2023 9:51 AM CDT) Anatomical Region Laterality Modality Breast Bilateral Mammography Narrative 12/18/2023 3:09 PM STRAIGHT LINE EDGER Mammogram Technique: Bilateral Digital Breast Tomosynthesis, Bilateral C-view 2D Screening mammogram. Views obtained: . Computer Aided Detection was performed. Mammogram Findings: The present examination has been compared to prior imaging studies performed at [facility] on 08/05/2014, 08/07/2015, 09/02/2016, 09/26/2017, 10/23/2018, [...] compared to prior imaging studies performed at [facility] on 08/05/2014, 08/07/2015,09/02/2016, 09/26/2017, 10/23/2018, 11/21/2019, [...] Most Recently Relevant to Health Maintenance Insurance [facility]IG [employer] [facility] [place] [facility] Care Teams Ediscovery Project Manager Relationship Specialty Start Date End Date Kingsley Noe NP [address] [place] [address] PCP - General Nurse Practitioner 12/15/23 Selwyn Ang DPT Physical Therapist Physical Therapy 01/03/20
--- OUTSIDE RECORDS SUMMARY | 2024-04-22 19:31 | XMS_ITS | Patient Health Summary ---
Author Organization [facility] Address [address] [place] [address] Care Team Providers Care Collar Setter Name Role Phone Unavailable Primary Care Provider Unavailabl e Note from [facility],non-owned Affiliates and Associated Physician Practices is amultiple site organization consisting of ambulatory clinics and hospital sitesin [place], [place], [place] and [place]. This disclosure is being madepursuant to the Care Everywhere program and may not contain all information available regarding this patient. Last updated 17.[facility] Social History Tobacco Use Types Packs/Day Years Used Date Smoking Tobacco: Never Assessed Sex and Gender Information Value Date Recorded Sex Assigned at Not on file Gender Identity Not on file Sexual Orientation Not on file Procedures * XR PELVIS W BILAT HIP 2VW(Performed 05/08/2020) Performed for Ankylosing spondylitis of multiple sites in spine ([facility]), Sacroiliitis ([facility]), Insomniadue to medical condition Results * XR HIPS BILATERAL 2 VW W AP PELVIS (05/08/2020 12:22 PM CDT) Anatomical Region Laterality Modality Pelvis, Lower Extremity [facility] 05/08/2020 1:32 PM CDT Impressions 05/08/2020 2:06 PM CDT Left sacroiliac joint arthrosis. *Reading Radiologist: Esteban Hollingsworth on 05/08/2020 at 2:06 PM Narrative 05/08/2020 2:06 PM CDT Pelvis AP Left hip 2 views Right hip 2 views History: Bilateral hip pain Bilateral hip and pelvic pain FINDINGS: Degenerative changes as the left inferior sacroiliac joint. History is fusion of the left, S1 transverse process. Right hip: Femoral head is smooth. The femoral acetabular alignment is normal. No fracture. Left hip: The femoral head is smooth. The femoral acetabular joint spacing is normal. No fracture or bone destructive process. The anterior bony pelvic girdle is intact. Procedure Note Esteban Hollingsworth MD - 05/08/2020 Pelvis AP Left hip 2 views Right hip 2 views History: Bilateral hip pain Bilateral hip and pelvic pain FINDINGS: Degenerative changes as the left inferior sacroiliac joint. History is fusion of the left, S1 transverse process. Right hip: Femoral head is smooth. The femoral acetabular alignment is normal. No fracture. Left hip: The femoral head is smooth. The femoral acetabular joint spacing is normal. No fracture or bone destructive process. The anterior bony pelvic girdle is intact. IMPRESSION Left sacroiliac joint arthrosis. *Reading Radiologist: Esteban Hollingsworth on 05/08/2020 at 2:06 PM Sage Delgado MD DIAGNOSTIC IMAGING O [facility]
--- OUTSIDE RECORDS SUMMARY | 2024-04-22 19:31 | XMS_ITS | Clinical Summary ---
Author Organization [facility] Address [address] [place] [address] Phone Care Team Providers Care Concrete Engineer Name Role Phone Yadielalee Marilee Wilfrido MATHEWS Primary Care Provider [phone] Allergies Active Allergy Reactions Criticality Noted Date Comments Codeine Other (see Comments) 12/14/2015 Impaired vision Wasp Venom Anaphylaxis 06/19/2018 Medications polyethylene glycol (MIRALAX) Powder Use entire 255g bottle with 64oz of clear liquid as directed for colonoscopy prep. 255 g 0 6 Active CODEINE SULFATE PO Take by mouth. Activ e B Complex Vitamins (B COMPLEX PO) Take by mouth. Act jose luis Cetirizine HCl (ZYRTEC PO) Take 1 Tab by mouth 2 times daily. Active Probiotic Product (PROBIOTIC DAILY PO) Take 1 Cap by mouth daily. Active loratadine (CLARITIN) 5 mg Tablet Take 10 mg by mouth daily. Active omeprazole (PRILOSEC) 20 MG CAPSULE DELAYED RELEASE Take 20 mg by mouth daily. Active lisinopril (PRINIVIL, ZESTRIL) 10 MG Tablet Take 10 mg by mouth daily. 1 9 Active Cholecalciferol (VITAMIN D PO) Take 1 Tab by mouth daily. Active Cyanocobalamin (B-12 PO) Take by mouth. Activ e Family History Medical History Relation Name Comments Hypertension Brother Hypertension Father Melanoma Father Breast Cancer Maternal Aunt 1 great Cervical Cancer Maternal Aunt 2 great Colon Cancer Maternal Cousin Breast Cancer Maternal Grandmother Asthma Mother Chronic Obstructive Pulmonary Disease Mother Congestive Heart Failure Mother Heart Disease Mother Hypertension Mother Relation Name Status Comments Brother Father Alive Maternal Aunt 1 great Maternal Aunt 2 great Maternal Cousin Maternal Grandmother Mother Social History Tobacco Use Types Packs/Day Years Used Date Smoking Tobacco: Never Smokeless Tobacco: Never Alcohol Use Standard Drinks/Week Comments No 0 (1 standard drink = 0.6 oz pur e alcohol) PHQ-2 Answer Date Recorded PHQ-2 Score 0 10/27/2018 Comments Unknown Sex and Gender Information Value Date Recorded Sex Assigned at Not on file Legal Sex Female 10:22 PM CDT Gender Identity Not on file Sexual Orientation Not on file 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 on file Not on file Not on file Last Filed Vital Signs Vital Sign Reading Time Taken Comments Blood Pressure 101/70 06/19/2018 8:24 AM CDT Pulse 60 06/19/2018 8:24 AM CDT Temperature 36 C (96.8 F) 06/19/2018 8:24 AM CDT Respiratory Rate 14 06/19/2018 8:24 AM CDT Oxygen Saturation 100% 06/19/2018 8:24 AM CDT Inhaled Oxygen Concentration - - Weight 108.9 kg (240 lb) 05/28/2018 1:00 PM CDT Height 175.3 cm (5' 9 ) 05/28/2018 1:00 PM CDT Body Mass Index 35.44 05/28/2018 1:00 PM CDT Plan of Treatment Health Maintenance Due Date Last Done Comments Hepatitis C Virus (HCV) Screening 1973 TdaP Immunization 1973 Hepatitis B Immunization (1 of 3 - 19+ 3-dose series) 1992 Colonoscopy 06/20/2023 06/19/2018, 12/15/2015 Colorectal Cancer Screening 06/20/2023 Influenza Immunization (#1) 2023 SARS-COV-2 Immunization ( - 2023- season) 2023 Cologuard 11/06/2023 Immunochemical Fecal Occult Blood 11/06/2023 Mammogram 11/06/2023 Pneumococcal Immunization (5 0+ years) (1 of 1 - PCV) 11/06/2023 Zoster Immunization (1 of 2) 11/06/2023 Respiratory Syncytial Virus (RSV) Immunization (Adult) (1 - 1-dose 75+ series) 2048 06/19/2018, 12/15/2015 DTaP/Tdap/Td Immunization Discontinued 09/24/2004 Meningococcal Immunization (ACWY) Aged Out No longer eligible based on patient's age to complete this topic Pneumococcal Immunization Combined Aged Out No longer eligible based on patient's age to complete this topic Rotavirus Immunization Aged Out No lo nger eligible based on patient's age to complete this topic Care Teams Concrete Engineer Relationship Specialty Start Date End Date Marilee Bryosn APRN PCP - General Advanced Practice Nurse 12/15/15
--- OUTSIDE RECORDS SUMMARY | 2024-04-22 19:31 | XMS_ITS | Encounter Summary ---
Author Organization [facility] Address [address] [address] Care Team Providers Care Sole Rougher Name Role Phone Marilee Bryson NP Primary Care Provider [phone] Marilee Bryson MAKE UP MAN Primary Care Provider [phone] Michele Davis MD Primary Care Provider [phone] Marilee Bryson MAKE UP MAN Primary Care Provider [phone] Selwyn Ang DPT Unavailable [phone] Demetri Hylton Primary Care Provider Kingsley Noe MAKE UP MAN Primary Care Provider [phone] Encounter Details Date Type Department Care Team (Late st Contact Info) Description 03/18/2016 Orders Only [facility] ProviderFlor MD [address] [place] [id number] Social History Tobacco Use Types Packs/Day Years Used Date Smoking Tobacco: Never Assessed Comments Unknown Sex and Gender Information Value Date Recorded Sex Assigned at Not on file Legal Sex Female 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 us Historical Provider [facility] ANNIKA DICIKNSON Final Result documented in this encounter Visit Diagnoses Not on filedocumented in this encounter Care Teams Sole Rougher Relationship Specialty Start Date End Date Marilee Bryson NP PCP - General 05/13/16 09/01/16 Marilee Bryson NP PCP - General 03/18/16 05/12/16 Michele Davis MD [address] [place] [address] PCP - General 09/02/16 09/08/16 Marilee Bryson NP PCP - General 09/09/16 05/11/22 Demetri Hylton PA [address] [place] [address] PCP - General Physician Certified Mortician 05/12/22 12/14/23 Kingsley Noe NP [address] [place], [place] [id number] PCP - General Nurse Practitioner 12/15/23 Selwyn Ang DPT [address] [place] [address] Physical Therapist Physical Therapy 01/03/20 documented as of this encounter
== END 2024-04-22 18:34 | disposition home or self-care (01) ==
LOC: CHSIMG 18:34
PROVIDERS: PCP Internal Medicine; Visit Provider Internal Medicine
DX: G89.29 Other chronic pain (principal); M25.511 Pain in right shoulder; M19.011 Primary osteoarthritis, right shoulder; M77.8 Other enthesopathies, not elsewhere classified
CPT/HCPCS: 73030

== ENCOUNTER 2024-10-30 12:15 | Emergency (ER) | payer BC, SELFPAY ==
--- NOTE | ~2024-10-30 | XR_ITS ---
X-rays right wrist X-rays right hand Indication: Fall, pain Comparison: None Technique: 4 views right wrist, 3 views right hand Findings/Impression: Right wrist: 1. No fracture or dislocation Right hand: 1. No fracture or dislocation. 2. Mild degenerative changes second finger DIP joint. Reviewed, dictated and finalized at location R.
--- NOTE | 2024-10-30 12:20 | ED_ITS ---
HPI - General Adult General Chief complaint: Extremity Injury, Upper Stated complaint: INJURED R WRIST/HAND Source: patient Mode of arrival: ambulatory Limitations: no limitations History of Present Illness HPI narrative: Pt is a R hand dominant 48 y/o female presenting with c/o R. wrist and R. hand pain s/p trip and fall resulting on FOOSH yesterday. Denies striking her head. Denies LOC. Denies feeling dizzy or lightheaded prior to fall. 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 No additional complaints. Related Data Home Medications ?Medication ?Instructions ?Recorded ?Confirmed ?Last Taken ?Type esterified 1 tablet PO DAILY 09/08/23 0 10/23/24 Unknown History estrogens-methyltestosterone 1.25 mg-2.5 mg tablet oxybutynin chloride 10 mg 10 mg PO DAILY 09/08/2310/14 Unknown History tablet,extended release 24 hr Allergies Allergy/AdvReac Type Severity Reaction Status Date / Time codeine Allergy Intermediate Blurry Verified 10/30/24 12:27 Vision Review of Systems Review of Systems: CONSTITUTIONAL: Denies body aches, fever, chills, or sweats. EYES: Denies visual changes, redness, or discharge. ENT: Denies rhinorrhea, congestion, sore throat, or otalgia. CARDIOVASCULAR: Denies chest pain, palpitations, or edema. RESPIRATORY: Denies cough or dyspnea. GASTROINTESTINAL: Denies abdominal pain, nausea, vomiting, or diarrhea. GENITOURINARY: Denies dysuria or hematuria. SKIN: Denies rash, itching, or wounds. MUSCULOSKELETAL: Reports pain to R. wrist, R. hand Denies back pain NEUROLOGIC: Denies headache, numbness, tingling, or weakness. PSYCH: Denies depression or anxiety. All systems reviewed & are unremarkable except as noted in HPI and below (HPI) [facility] Past Medical History Medical History History of gastroesophageal reflux (GERD) Arthritis GERD (gastroesophageal reflux disease) Hypertension Surgical History Surgical History H/O: hysterectomy H/O: History of Darvin fundoplication H/O elbow surgery Bilateral ulnar nerve transposition. Right lateral epicondylar debridement. Family History Family History Mother Hypertension Asthma Cerebrovascular accident Family history of diabetes mellitus in first degree relative Family history of chronic obstructive pulmonary disease Sibling Hypertension Family history of coronary artery disease Father Cerebrovascular accident Other Alcoholism Breast cancer Depression Diabetes mellitus Family history of cardiovascular disease Family history of malignant neoplasm Heart disease Social History Social History Smoking status: Never smoker Alcohol intake: current Drinks per week: 6 Substance use: never Substance use type: does not use Lack of Transportation: No Lack of Food: Never True Current Housing: I Have Housing Concerned About Future Housing: No Difficulty Paying Gas/Electric Bills: No Difficulty Paying for Meds: No Currently Unemployed: No Education: High School Diploma/GED Difficulty w/ Childcare or Family Care: No Living arrangements: with family Occupation/Education: occupation 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 HEAD: Normocephalic, atraumatic. EYES: EOMI. No redness or drainage. Conjunctivae normal. NECK: Normal AROM. Supple. CHEST: No respiratory distress. HEART: Regular rate Normal peripheral pulses. EXTREMITIES:Mild edema to the dorsal aspect of the R. wrist, R. hand. No ecchymosis. No open wounds. pain elicited with flexion of the R. wrist. FROM, DNVI to the RUE. No Snuffbox tenderness SKIN: Warm, dry, no rash. Capillary refill normal. Normal skin turgor. NEURO: No focal deficits. Alert and oriented x3. Gait steady. PSYCH: Normal affect. No signs of depression or anxiety. Course Course Level of Care: Express Care Visit Vital Signs Vital signs: Vital Signs Temperature 98.1 F 10/30/24 12:22 Pulse Rate 66 10/30/24 12:22 Respiratory Rate 16 10/30/24 12:22 Blood Pressure 115/74 10/30/24 12:22 Pulse Oximetry 100 10/30/24 12:22 Temperature 98.1 F 10/30/24 12:22 Pulse Rate 66 10/30/24 12:22 Respiratory Rate 16 10/30/24 12:22 Blood Pressure 115/74 10/30/24 12:22 Pulse Oximetry 100 10/30/24 12:22 Medical Decision Making Vital Signs Vital Signs: Vital Signs Temperature 98.1 F 10/30/24 12:22 Pulse Rate 66 10/30/24 12:22 Respiratory Rate 16 10/30/24 12:22 Blood Pressure 115/74 10/30/24 12:22 Pulse Oximetry 100 10/30/24 12:22 Temperature 98.1 F 10/30/24 12:22 Pulse Rate 66 10/30/24 12:22 Respiratory Rate 16 10/30/24 12:22 Blood Pressure 115/74 10/30/24 12:22 Pulse Oximetry 100 10/30/24 12:22 Imaging Data Attestation: I personally reviewed and interpreted this imaging study as follows: My impression: NAF Discharge Plan Discharge Clinical Impression: Pain and swelling of right wrist, Fall, Pain of right hand, Sprain and strain of right hand, Sprain and strain of right wrist Patient Disposition: Home Condition: Stable Instructions: Hand Sprain (ED), P.R.I.C.E. Treatment (ED) Additional Instructions: Go straight to ER should your symptoms become worse or should any new symptoms develop Patient Language: Japanese Prescriptions: No Action estrogens-methyltestosterone 1.25-2.5 mg tablet 1 tablet PO DAILY oxybutynin chloride 10 mg tablet extended release 24hr 10 mg PO DAILY valacyclovir 1 gram tablet 2,000 mg PO Q12H Qty: 12 1RF Rx Instructions: Take for one day with each recurrence celecoxib 200 mg capsule 200 mg PO DAILY Qty: 90 1RF pantoprazole 40 mg tablet,delayed release (DR/EC) 40 mg PO QAM Qty: 90 2RF Wegovy 2.4 mg/0.75 mL pen injector See Rx Instructions .ROUTE .COMPLEX Qty: 3 3RF Dose Instruction: 2.4 MG (0.75 ML) SUBCUTANEOUSLY WEEKLY Rx Instructions: 2.4 MG (0.75 ML) SUBCUTANEOUSLY WEEKLY lisinopril 10 mg tablet See Rx Instructions .ROUTE .COMPLEX Qty: 90 1RF Dose Instruction: 10 MG ORALLY DAILY Rx Instructions: 10 MG ORALLY DAILY Follow-up/Referrals: Nicola Gilliland DO [Primary Care Provider, Internal Medicine] - 10/31/24 Time of Disposition: 12:59
[2024-10-30 12:22] VITALS: BP 115/74; PULSE 66; RESP 16; TEMP 36.7; O2SAT 100
== END 2024-10-30 13:03 | disposition home or self-care (01) ==
PROVIDERS: Emergency Provider Registered Nurse; PCP Internal Medicine
DX: S63.91XA Sprain of unspecified part of right wrist and hand, initial encounter (principal); S66.911A Strain of unspecified muscle, fascia and tendon at wrist and hand level, right hand, initial encounter; S63.501A Unspecified sprain of right wrist, initial encounter; W19.XXXA Unspecified fall, initial encounter; I10 Essential (primary) hypertension; K21.9 Gastro-esophageal reflux disease without esophagitis; M19.90 Unspecified osteoarthritis, unspecified site
CPT/HCPCS: 73110; 73130; 99213; G0463